=== PATIENT | male | born 1955 | race Caucasian/White ===

== ENCOUNTER 2018-08-19 13:21 | Inpatient (IN) | payer OTHER ==
[~2018-08-19] VITALS: Ht 180.3 cm; Wt 133.8 kg
[~2018-08-19 13:21] MED LIST: AMO500 PO; ASPIR 8181 MG PO; BIA500 PO; DIOVAN160 MG PO; HYDROCHLOROTHIA50 MG PO; LIPI10 PO; METFORMIN HCL850 MG PO; NOR10 PO; PRILOSEC40 MG PO; SIMVASTATIN20 M1 PO; TRAMADOL HCL50 MG PO
[2018-08-19 13:39] VITALS: Ht 180.3 cm; Wt 133.8 kg
[2018-08-19 15:05] LABS: PLATELET COUNT 216 x10^3mcL (130-400)
[2018-08-19 15:07] LABS: RED CELL DISTRIBUTION WIDTH 16.5 % (11.5-14.5)
[2018-08-19 15:15] LABS: CALCIUM 8.7 mg/dL (8.5-10.1); CARBON DIOXIDE 26.1 mmol/L (21-32); CHLORIDE SERUM 106 mmol/L (98-107); CREATININE SERUM 1.2 mg/dL (0.7-1.3); GFR1 > 60 mL/min; GLUCOSE SERUM 134 mg/dL (74-106); POTASSIUM SERUM 4.2 mmol/L (3.5-5.1); SODIUM SERUM 140 mmol/L (136-145)
[2018-08-19 15:21] LABS: ALKALINE PHOSPHATASE 105 U/L (46-116); ALT/SGPT 17 U/L (16-63); AST/SGOT 18 U/L (15-37); BILIRUBIN TOTAL 0.5 mg/dL (0.20-1.00); TOTAL PROTEIN, SERUM 7.4 g/dL (6.4-8.2)
[2018-08-19 15:23] LABS: ALBUMIN 3.1 g/dL (3.4-5.0)
[2018-08-19] MEDS ORDERED: JANUVIA100 M1 PO (16:20)
[2018-08-19] MEDS ORDERED: CARVEDILOL3.125 M1 PO (16:21)
[2018-08-19] MEDS ORDERED: COZAAR100 MG PO (16:22)
[2018-08-19] MEDS ORDERED: HYDROCHLOROTHIA50 MG PO (16:23)
[2018-08-19 17:10] VITALS: BP 225/112
[2018-08-19 21:22] VITALS: BP 121/62
[2018-08-20 06:01] VITALS: BP 161/80
[2018-08-20 09:45] VITALS: BP 167/104
[2018-08-20 17:11] VITALS: BP 157/82
[2018-08-20 21:43] VITALS: BP 162/89
[2018-08-21 05:35] VITALS: BP 124/53
[2018-08-21 10:09] VITALS: BP 119/69
[2018-08-21 14:15] VITALS: BP 151/79
[2018-08-21 17:36] VITALS: BP 184/93
[2018-08-21 18:21] VITALS: BP 159/92
[2018-08-21 21:32] VITALS: BP 139/88
== END 2018-08-21 23:27 | disposition short-term general hospital (02) | DRG 133 ==
LOC: ED 13:21 → DU 16:16
DX: J96.91 Respiratory failure, unspecified with hypoxia (principal); I50.23 Acute on chronic systolic (congestive) heart failure; J18.9 Pneumonia, unspecified organism; I42.9 Cardiomyopathy, unspecified; E66.01 Morbid (severe) obesity due to excess calories; J44.0 Chronic obstructive pulmonary disease with (acute) lower respiratory infection; I11.0 Hypertensive heart disease with heart failure; Z68.41 Body mass index [BMI] 40.0-44.9, adult; J44.1 Chronic obstructive pulmonary disease with (acute) exacerbation; G47.33 Obstructive sleep apnea (adult) (pediatric); I16.1 Hypertensive emergency; R91.8 Other nonspecific abnormal finding of lung field; I25.10 Atherosclerotic heart disease of native coronary artery without angina pectoris; Z79.82 Long term (current) use of aspirin; Z85.51 Personal history of malignant neoplasm of bladder; Z95.2 Presence of prosthetic heart valve; Z79.84 Long term (current) use of oral hypoglycemic drugs; Z91.19 Patient's noncompliance with other medical treatment and regimen; Z87.891 Personal history of nicotine dependence; Z23 Encounter for immunization
CPT/HCPCS: 82962; 83880; 90658; J0360; J1644; J1940; J1956; J3490; J7050; J7620

== ENCOUNTER 2019-06-16 16:47 | Emergency (ER) | payer OTHER ==
[~2019-06-16] VITALS: Ht 180.3 cm; Wt 124.7 kg
[~2019-06-16 16:47] MED LIST changes: +CARVEDILOL3.125 M1 PO; +COZAAR100 MG PO; +JANUVIA100 M1 PO
[2019-06-16 17:40] VITALS: Ht 180.3 cm; Wt 124.7 kg
[2019-06-17 00:54] VITALS: BP 178/100
== END 2019-06-17 00:54 | disposition home or self-care (01) ==
LOC: ED 16:47
DX: K57.90 Diverticulosis of intestine, part unspecified, without perforation or abscess without bleeding (principal); N20.0 Calculus of kidney; K80.20 Calculus of gallbladder without cholecystitis without obstruction; I11.0 Hypertensive heart disease with heart failure; I50.9 Heart failure, unspecified; Z98.890 Other specified postprocedural states; Z85.51 Personal history of malignant neoplasm of bladder
CPT/HCPCS: J1885; J2270; Q0162